=== PATIENT | male | born 1955 | race Caucasian/White ===

== ENCOUNTER 2017-01-23 17:12 | Inpatient (IN) | payer OTHER ==
--- NOTE | 2017-01-23 19:00 | NUR ---
PT ARRIVED TO FRONT ENTRANCE. ASSISTED OUT OF CAR INTO WC WITH MOD ASSIST. PT HAS LEFT SIDE WEAKNESS. PROPELLED IN WC TO ROOM 1114B, AND ADMITTED TO DR CLIFFORD [facility]. ORIENTED TO ROOM AND UNIT RULES. 3 FAMILY MEMBERS ARE AT BEDSIDE. PT IS ALERT AND ORIENTED X 3. SR'S ARE UP X 2 IN BED. CALL LIGHT AND BEDSIDE TABLE ARE WITHINEASY REACH.
--- NOTE | 2017-01-23 21:05 | NUR ---
ADMISSION ASSESSMENT COMPLETED. PT. IN BED WITH HOB UP FOR COMFORT AND FAMILY VISITING. NO VOICED NEEDS AND HIS CALL LIGHT IS WITHIN REACH.
[2017-01-23 21:32] VITALS: BP 185/74; BMI 29.4
[2017-01-23] MEDS ORDERED: GABAPENTIN100 MG PO (22:39)
[2017-01-23] MEDS ORDERED: LIPITOR40 MG PO (22:48)
[2017-01-23] MEDS ORDERED: PLAVIX75 MG PO (22:49)
[2017-01-23] MEDS ORDERED: PRINIVIL20 MG PO (22:49)
[2017-01-23] MEDS ORDERED: GLUCOPHAGE500 MG PO (22:50)
[2017-01-23] MEDS ORDERED: COREG25 MG PO (22:51)
--- NOTE | 2017-01-23 23:46 | NUR ---
PT IS RESTING IN BED VISITING WITH HIS SISTER WHO IS STAYING THE NIGHT WITH HIM. NO NEEDS VOICED.
--- NOTE | 2017-01-24 03:50 | NUR ---
RESTING QUIETLY IN BED WITH EYES CLOSED. RESPS ARE EVEN AND UNLABORED. NO ACUTE DISTRESS NOTED.
--- NOTE | 2017-01-24 06:10 | NUR ---
PT RESTING IN BED WITH EYES CLOSED. NO DISTRESS NOTED.
[2017-01-24 06:40] LABS: BASOPHILS 0.2 % (0-2); HEMATOCRIT 41.8 % (42.0-54.0); HEMOGLOBIN 14.5 g/dL (13.5-17.5); IMMATURE GRANULOCYTES 0.5 % (0-5); LYMPHOCYTES 36.3 % (15-50); MCH 31.5 pg (26.0-34.0); MCHC 34.7 g/dL (31.0-37.0); MCV 90.9 fL (80.0-100.0); MEAN PLATELET VOLUME 10.1 fL (7.4-10.4); MONOCYTES 9.8 % (2-11); NEUTROPHILS 51.2 % (40-80); PLATELET COUNT 220 10x3/uL (130-400); RDW 13.7 % (11.5-14.5); WBC 8.1 10x3/uL (4.8-10.8)
[2017-01-24 06:49] LABS: ANION GAP 13.5 mmol/L (8-16); CALCIUM 9.1 mg/dL (8.5-10.1); CARBON DIOXIDE 24.7 mmol/L (21.0-32.0); CREATININE - SERUM 1.8 mg/dL (0.6-1.3); POTASSIUM - SERUM 4.2 mmol/L (3.5-5.1)
--- NOTE | 2017-01-24 08:06 | NUR ---
SITTING UP IN BED.FAMILY/FRIEND AT BEDSIDE.CL IN REACH.DENIES NEEDS.
[2017-01-24 08:10] VITALS: BP 154/81
--- NOTE | 2017-01-24 08:50 | NUR ---
PT RESTING IN BED WITH EYES OPEN CALL LIGHT IN REACH WILL MONITER
[2017-01-24 10:07] VITALS: BMI 29.4
--- NOTE | 2017-01-24 17:00 | NUR ---
PT UP IN BED EATING SUPPER SISTER IN ROOM CALL LIGHT IN REACH TOLERATING WELL WILL ERIKER
--- NOTE | 2017-01-24 18:10 | NUR ---
PT RESTING IN BED WITH EYES OPEN CALL LIGHT IN REACH WILL MONITER
--- NOTE | 2017-01-24 19:40 | NUR ---
PT IS RESTING IN BED WITH EYES OPEN. ALERT AND ORIENTED X 4. PT STATES HE HAD A GREAT DAY OF THERAPY, BUT IS SORE ALL OVER TONIGHT. DENIES ANY NEEDS. SISTER IS AT BEDSIDE. LEFT SIDE WEAKNESS NOTED. SR'S ARE UP X 2 IN BED. CALL LIGHT AND BEDSIDE TABLE ARE WITHIN EASY REACH.
--- NOTE | 2017-01-24 20:04 | NUR ---
PT. IN BED WATCHING TV AND EATING. FEMALE VISITOR PRESENT ALSO. CALL LIGHT WITHIN REACH.
[2017-01-24 20:59] VITALS: BP 151/66
--- NOTE | 2017-01-24 21:26 | NUR ---
PT RESTING IN BED WATCHING TV. NO NEEDS VOICED.
--- NOTE | 2017-01-25 00:22 | NUR ---
RESTING IN BED WITH EYES CLOSED.
--- NOTE | 2017-01-25 04:18 | NUR ---
PT RESTING IN BED WITH EYES CLOSED. NO DISTRESS NOTED.
[2017-01-25 08:00] VITALS: BP 135/72
--- NOTE | 2017-01-25 09:00 | NUR ---
PATIENT ALERT/ORIENT X4. CALL LIGHT WITHIN REACH. VOICES NO NEEDS AT THIS TIME. SISTER STAYED WITH PATIENT LAST NIGHT. REMAINS IN ROOM.
--- NOTE | 2017-01-25 13:52 | NUR ---
PATIENT USING URINAL AT BEDSIDE. THIS NURSE EMPTIES. VOIDING LARGE AMOUNT. CLEAR YELLOW URINE OUTPUT
--- NOTE | 2017-01-25 16:00 | NUR ---
SITTING UP IN BED VISITING WITH FAMILY/FRIEND.DENIES NEEDS.
--- NOTE | 2017-01-25 19:50 | NUR ---
FRIEND STAY IN ROOM WITH PT.
--- NOTE | 2017-01-25 20:16 | NUR ---
PT. IN BED WITH HOB UP FOR COMFORT AND HAS SEVERAL VISITORS. NO VOICED NEEDS AND HIS CALL LIGHT IS WITHIN REACH.
[2017-01-25 22:27] VITALS: BP 149/58
--- NOTE | 2017-01-26 03:10 | NUR ---
REST QUIETLY IN BED,EYE CLOSE, CALL LIGHT IN REACH.
[2017-01-26 05:37] LABS: BASOPHILS 0.4 % (0-2); EOSINOPHILS 2.5 % (0-7); HEMATOCRIT 39.2 % (42.0-54.0); HEMOGLOBIN 13.4 g/dL (13.5-17.5); IMMATURE GRANULOCYTES 0.5 % (0-5); LYMPHOCYTES 41.9 % (15-50); MCH 31.3 pg (26.0-34.0); MCHC 34.2 g/dL (31.0-37.0); MCV 91.6 fL (80.0-100.0); MEAN PLATELET VOLUME 10.4 fL (7.4-10.4); MONOCYTES 9.3 % (2-11); NEUTROPHILS 45.4 % (40-80); PLATELET COUNT 236 10x3/uL (130-400); RBC 4.28 10x6/uL (4.20-6.10); RDW 13.7 % (11.5-14.5); WBC 7.5 10x3/uL (4.8-10.8)
[2017-01-26 05:41] LABS: HEMOGLOBIN A1C 7.1 % (4.8-6.0)
[2017-01-26 05:58] LABS: ANION GAP 13.3 mmol/L (8-16); CALCIUM 8.9 mg/dL (8.5-10.1); CARBON DIOXIDE 25.7 mmol/L (21.0-32.0); CHOL - HDL RATIO 4.3 ratio (2.3-4.9); CREATININE - SERUM 1.9 mg/dL (0.6-1.3)
[2017-01-26 08:00] VITALS: BP 134/73
--- NOTE | 2017-01-26 08:00 | NUR ---
PATIENT IS ALERT/ORIENT X4. SISTER STAYS IN ROOM WITH PATIENT. CALL LIGHT WITHIN REACH. PATIENT USING CALL LIGHT FOR NEEDS.
--- NOTE | 2017-01-26 15:04 | NUR ---
PATIENT WORKING WITH OCCUPATIONAL THERAPIST IN ROOM. GETTING A SHOWER. LINENS ON BED CHANGED WHILE PATIENT IN THE SHOWER.
--- NOTE | 2017-01-26 16:19 | NUR ---
PATIENT HAS SIGNED A RELEASE OF RESPONSIBILITY FOR BED/CHAIR ALARM. SISTER STAYES IN ROOM WITH PATIENT AND HELPES PATIENT INTO THE BATHROOM. PATIENT SORES A 3 ON FALL RISK
[2017-01-26 19:50] VITALS: BP 136/64
--- NOTE | 2017-01-26 19:50 | NUR ---
IN BED, AWAKE. SISTER AT BEDSIDE. ASSISTS PATIENT WITH MOST NEEDS. VSS. PATIENT DENIES CURRENT NEEDS.
--- NOTE | 2017-01-26 21:45 | NUR ---
ASSESSMENT AND HS MEDS COMPLETE. DENIES CURRENT NEEDS.
--- NOTE | 2017-01-26 22:15 | NUR ---
RESTING QUIETLY IN BED, EYES CLOSED.
--- NOTE | 2017-01-27 | NUR ---
RESTING IN BED ON LEFT SIDE, EYES CLOSED. APPEARS COMFORTABLE.
--- NOTE | 2017-01-27 01:20 | NUR ---
REMAINS IN BED, EYES CLOSED. APPEARS COMFORTABLE.
--- NOTE | 2017-01-27 03:20 | NUR ---
IN BED, AWAKE. CHANGING POSITIONS. DENIES NEEDS.
--- NOTE | 2017-01-27 05:40 | NUR ---
IN BED, RESTING QUIETLY, EYES CLOSED. SISTER WILL ASSIST PATIENT WITH ADL'S THIS MORNING.
[2017-01-27 07:56] VITALS: BP 148/75
--- NOTE | 2017-01-27 08:16 | NUR ---
EATING BREAKFAST. CALL LIGHT IN REACH
--- NOTE | 2017-01-27 12:01 | NUR ---
EATING LUNCH IN ROOM. LUE STILL SLIGHTLY SWOLLEN. HE STATES HE HAS SOME FEELING IN IT AND GROSS MOTOR MOVEMENTS NOTED TO HERBERT.
--- NOTE | 2017-01-27 18:17 | NUR ---
EATING SUPPER IN ROOM. CALL LIGHT IN REACH.
[2017-01-27 19:50] VITALS: BP 133/64
--- NOTE | 2017-01-27 19:50 | NUR ---
VS AND ASSESSMENT COMPLETE. DENIES NEEDS.
--- NOTE | 2017-01-27 21:20 | NUR ---
GAVE PATIENT SCHEDULED DOSE OF GABAPENTIN. HAS NO C/O AT THIS TIME.
--- NOTE | 2017-01-27 22:30 | NUR ---
RESTING QUIETLY IN BED ON LEFT SIDE. NO DISTRESS EVIDENT.
--- NOTE | 2017-01-28 00:10 | NUR ---
RESTING IN BED, ON RIGHT SIDE. NO APPARENT DISTRESS.
--- NOTE | 2017-01-28 04:40 | NUR ---
RESTING IN BED ON LEFT SIDE. RESPIRING QUIETLY.
--- NOTE | 2017-01-28 06:15 | NUR ---
RESTING IN BED, EYES CLOSED. APPEARS COMFORTABLE.
[2017-01-28 06:36] LABS: BASOPHILS 0.6 % (0-2); EOSINOPHILS 2.3 % (0-7); HEMATOCRIT 39.2 % (42.0-54.0); HEMOGLOBIN 13.5 g/dL (13.5-17.5); IMMATURE GRANULOCYTES 0.3 % (0-5); MCH 31.5 pg (26.0-34.0); MCHC 34.4 g/dL (31.0-37.0); MCV 91.6 fL (80.0-100.0); MEAN PLATELET VOLUME 10.1 fL (7.4-10.4); MONOCYTES 12.1 % (2-11); NEUTROPHILS 46.7 % (40-80); PLATELET COUNT 232 10x3/uL (130-400); RBC 4.28 10x6/uL (4.20-6.10); RDW 13.5 % (11.5-14.5)
[2017-01-28 07:00] LABS: ANION GAP 12.8 mmol/L (8-16); CALCIUM 9.2 mg/dL (8.5-10.1); CARBON DIOXIDE 28.4 mmol/L (21.0-32.0); CREATININE - SERUM 2.1 mg/dL (0.6-1.3); POTASSIUM - SERUM 4.2 mmol/L (3.5-5.1)
--- NOTE | 2017-01-28 08:00 | NUR ---
DENIES NEEDS.FAMILY/FRIEND AT BEDSIDE.CL IN REACH.
--- NOTE | 2017-01-28 08:00 | NUR ---
PATIENT IS ALERT/ORIENT X4. SISTER STAYES WITH PATIENT IN ROOM 24/11. PATIENT HAS SINGED A BED/CHAIR ALARM WAVIOR. CALL LIGHT WITHIN REACH. VOICES NO NEEDS AT THIS TIME.
[2017-01-28 08:11] VITALS: BP 138/71
--- NOTE | 2017-01-28 10:30 | NUR ---
PATIENT WORKING WITH OCCUPATIONAL THERAPIST IN ROOM. OCCUPATIONAL THERAPIST HELPING DYLON WITH OT SHOWER.
--- NOTE | 2017-01-28 13:21 | NUR ---
PATIENT IN REHAB ROOM. WORKING WITH PHYSICAL THERAPIST. DENIES ANY PAIN/DISC AT THIS TIME
--- NOTE | 2017-01-28 13:31 | NUR ---
RD f/u Chart reviewed, consuming 75-100% of regular diet. wt stable. nae 20 with incesions on medial L elbow and abrasion L ankle. Pt without complaints. no changes at this time time. pt with excelleing po intake. No changes PLAN: Continue current diet, continue to provide selective menu, RD to follow, continue plan of care
--- NOTE | 2017-01-28 14:23 | NUR ---
CARE TEAM MEETING: TENATIVE DISCHARGE DATE IS 02/06/17. WILL CONTINUE TO FOLLOW WITH PATIENT AND ASSIT WITH DISCHARGE NEEDS.
--- NOTE | 2017-01-28 18:32 | NUR ---
PATIENT REMAINS INDEPENDANT IN ROOM.
--- NOTE | 2017-01-28 19:00 | NUR ---
PATIENT IN BED, AWAKE. DENIES NEEDS. SISTER STAYING IN ROOM WITH PATIENT AND ASSISTS WITH MOST OF HIS NEEDS.
[2017-01-28 21:05] VITALS: BP 144/56
--- NOTE | 2017-01-28 21:05 | NUR ---
ASSESSMENT AND HS MEDS COMPLETE. DENIES NEEDS.
--- NOTE | 2017-01-28 22:10 | NUR ---
IN BED, AWAKE. WATCHING TV. DENIES DISCOMFORT OR OTHER NEEDS.
--- NOTE | 2017-01-29 00:35 | NUR ---
RESTING IN BED, ON RIGHT SIDE, HOB UP 20 DEGREES. APPEARS COMFORTABLE.
--- NOTE | 2017-01-29 02:40 | NUR ---
IN BED, EYES CLOSED. RESTING QUIETLY ON RIGHT SIDE.
--- NOTE | 2017-01-29 06:00 | NUR ---
RESTING IN BED, EYES CLOSED. RESPIRING QUIETLY.
--- NOTE | 2017-01-29 07:35 | NUR ---
SITTING UP IN BED RESTING COMFORTABLY. OFFERS NO COMPLAINTS. CALL LIGHT WITHIN REACH. WILL CONTINUE TO MONITOR
--- NOTE | 2017-01-29 07:53 | NUR ---
SITTING UP IN BED EATING BREAKFAST.CL IN REACH.FAMILY/FRIEND ASSISTING.
[2017-01-29 10:06] VITALS: BP 126/72
--- NOTE | 2017-01-29 11:09 | NUR ---
SITTING UP IN WHEELCHAIR VISITING WITH FAMILY. OFFERS NO COMPLAINTS. NO S/SX OF DISTRESS. CALL LIGHT WITHIN REACH. WILL CONTINUE TO MONITOR
--- NOTE | 2017-01-29 15:32 | NUR ---
SITTING UP IN WHEELCHAIR WATCHING TV. SISTER AT BEDSIDE. OFFERS NO COMPLAINTS. CALL LIGHT WITHIN REACH. WILL CONTINUE TO MONITOR.
--- NOTE | 2017-01-29 17:00 | NUR ---
CLINICALS FAXED TO [place] AT [facility]. AUTH # [id number] WITH CONFORMATION RECEIVED
--- NOTE | 2017-01-29 19:15 | NUR ---
IN BED, HOB UP 45 DEGREES. DENIES NEEDS. SISTER STAYING IN ROOM WITH PATIENT. ASSISTS WITH MOST OF HIS CARE.
[2017-01-29 21:30] VITALS: BP 166/70
--- NOTE | 2017-01-29 21:30 | NUR ---
ASSESSMENT AND HS MEDS COMPLETE. DENIES NEEDS.
--- NOTE | 2017-01-29 22:10 | NUR ---
RESTING QUIETLY IN BED, EYES CLOSED.
--- NOTE | 2017-01-30 00:10 | NUR ---
RESTING IN BED ON LEFT SIDE, HOB UP 20 DEGREES. NO DISTRESS EVIDENT.
--- NOTE | 2017-01-30 02:30 | NUR ---
RESTING IN BED ON RIGHT SIDE. APPEARS COMFORTABLE.
--- NOTE | 2017-01-30 04:45 | NUR ---
CONTINUES IN BED, LYING ON RIGHT SIDE. RESPIRING QUIETLY.
--- NOTE | 2017-01-30 06:05 | NUR ---
REMAINS IN BED, RESTING QUIETLY.
[2017-01-30 06:49] LABS: BASOPHILS 0.6 % (0-2); EOSINOPHILS 3.1 % (0-7); HEMATOCRIT 38.7 % (42.0-54.0); HEMOGLOBIN 13.3 g/dL (13.5-17.5); IMMATURE GRANULOCYTES 0.5 % (0-5); LYMPHOCYTES 33.1 % (15-50); MCH 31.4 pg (26.0-34.0); MCHC 34.4 g/dL (31.0-37.0); MCV 91.5 fL (80.0-100.0); MEAN PLATELET VOLUME 10.1 fL (7.4-10.4); MONOCYTES 13.6 % (2-11); NEUTROPHILS 49.1 % (40-80); PLATELET COUNT 238 10x3/uL (130-400); RBC 4.23 10x6/uL (4.20-6.10); RDW 13.4 % (11.5-14.5); WBC 7.9 10x3/uL (4.8-10.8)
[2017-01-30 07:04] LABS: ANION GAP 10.5 mmol/L (8-16); CARBON DIOXIDE 29.9 mmol/L (21.0-32.0); CREATININE - SERUM 1.8 mg/dL (0.6-1.3); POTASSIUM - SERUM 4.4 mmol/L (3.5-5.1)
--- NOTE | 2017-01-30 08:18 | NUR ---
EATING BREAKFAST IN ROOM. CALL LIGHT IN REACH
--- NOTE | 2017-01-30 08:30 | NUR ---
PT RESTING IN BED WITH EYES OPEN CALL LIGHT IN REACH WILL MONITER
[2017-01-30 08:46] VITALS: BP 156/76
--- NOTE | 2017-01-30 12:00 | NUR ---
PT RESTING IN BED WITH EYES OPEN CALL LIGHT IN REACH WILL MONITER
[2017-01-30 20:39] VITALS: BP 139/47
--- NOTE | 2017-01-30 20:39 | NUR ---
RECIEVED UP IN BED WITH TV ON AND VISITOR AT BEDSIDE. PLEASANT AND COOPERATIVE. DENIES ANY PAIN. CALL LIGHT IN REACH.
--- NOTE | 2017-01-30 22:39 | NUR ---
LAYING IN BED WITH LIGHTS OFF AND TV ON. PLEASANT AND COOPERATIVE. DENIES ANY PAIN AT THIS TIME. VISITOR AT [facility]. CALL LIGHT AND OVERBED TABLE IN REACH.
--- NOTE | 2017-01-31 02:10 | NUR ---
RESTING IN BED WITH EYES CLOSED.NO S/S OF DISTRESS OBSERVED. CALL LIGHT AND OVERBED TABLE IN REQACH.
--- NOTE | 2017-01-31 07:18 | NUR ---
RESTING QUIETLY IN BED. CALL LIGHT IN REACH. BED IN LOW POSITION. BED ALARM IN PLACE AND IN USE.
--- NOTE | 2017-01-31 07:55 | NUR ---
LYING IN BED ON RIGHT SIDE EYES CLOSED RESTING QUIELTY. APPROPRIATE RISE AND FALL OF CHEST. SISTER AT BEDSIDE. WILL CONTINUE TO MONITOR.
[2017-01-31 08:00] VITALS: BP 122/55
--- NOTE | 2017-01-31 17:57 | NUR ---
SITTING UP IN BED WATCHING TV. SISTER AT BEDSIDE. DENIES ANY NEEDS. CALL LIGHT WITHIN REACH, BED LOW. WILL CONTINUE TO MONITOR
[2017-01-31 19:55] VITALS: BP 157/71
--- NOTE | 2017-01-31 19:55 | NUR ---
RECIEVED UP IN BED WITH EYES OPEN AND TV ON. SISTER AT BEDSIDE. CONTINUES TO HAVE LEFT SIDED WEAKNESS. STATES "THERAPY GAVE ME A WORK OUT TODAY. CAN I GET SOME IBUPROPHEN WHEN I GET MY MEDICATION". THIS NURSE AGREED. ALERT AND ORIENTED. CALL LIGHT IN REACH.
--- NOTE | 2017-01-31 21:30 | NUR ---
RESTING IN BED WITH EYES OPEN AND TV ON. PLEASANT AND COOPERATIVE. C/O GENERAL PAIN AT 4. DESCRIBES ACHING. MOTRIN GIVEN PER ORDERS. CALL LIGHT IN REAC.
--- NOTE | 2017-02-01 02:21 | NUR ---
RESTING IN BED WITH EYES CLOSED. NO S/S OF DISTRESS OBSERVED. SISTER AT BEDSIDE ASLEEP. CALL LIGHT AND OVERBED TABLE IN REACH.
--- NOTE | 2017-02-01 06:36 | NUR ---
RESTING IN BED WITH EYES CLOSED. NO S/S OF DISTRESS OBSERVED. [facility] AND OVERBED TABLE IN REACH.
[2017-02-01 08:00] VITALS: BP 97/73
--- NOTE | 2017-02-01 09:55 | NUR ---
LYING IN BED ON RIGHT SIDE EYES CLOSED RESTING QUIETLY. APPROPRIATE RISE AND FALL OF CHEST. NO S/SX OF DISTRESS. CALL LIGHT WITHIN REACH, BED LOWEST POSITION. SISTER IN ROOM. WILL CONTINUE TO MONITOR.
--- NOTE | 2017-02-01 13:09 | NUR ---
SITTING UP IN CHAIR. SISTER AT BEDSIDE. DENIES ANY NEEDS. CALL LIGHT WITHIN REACH. WILL CONTINUE TO MONITOR
--- NOTE | 2017-02-01 19:40 | NUR ---
RESTING IN BED WITH TV ON AND SISTER AT BEDSIDE. ALERT AND ORIENTED X4. RATES PAIN AT 4. REQUEST IBUPROPHEN BE GIVEN WITH NIGHT TIME MEDS. STATES ACHES ALL OVER D/T THERAPY. CALL LIGHT AND OVERBED TABLE IN REACH.
[2017-02-01 20:53] VITALS: BP 170/60
--- NOTE | 2017-02-01 21:03 | NUR ---
RESTING IN BED WITH EYES OPEN. NO S/S OF DISTRESS OBSERVED. WATCHING TV AT THIS TIME. DENIES ANY NEEDS. CALL LIGHT AND OVERBED TABLE IN REACH.
--- NOTE | 2017-02-02 00:07 | NUR ---
RESTING IN BED WITH EYES CLOSED. NO S/S OF DISTRESS OBSERVED. CALL LIGHT AND OVERBED TABLE IN REACH.
--- NOTE | 2017-02-02 02:02 | NUR ---
RSTING IN BED QWITH EYES CLOSED. NO S/S OF DISTRESS OBSERVED. CALL LIGHT AND OVERBED TABLE IN REACH.
[2017-02-02 05:36] LABS: BASOPHILS 0.9 % (0-2); EOSINOPHILS 4.2 % (0-7); HEMATOCRIT 38.9 % (42.0-54.0); HEMOGLOBIN 13.2 g/dL (13.5-17.5); IMMATURE GRANULOCYTES 0.5 % (0-5); LYMPHOCYTES 40.1 % (15-50); MCH 31.3 pg (26.0-34.0); MCHC 33.9 g/dL (31.0-37.0); MCV 92.2 fL (80.0-100.0); MEAN PLATELET VOLUME 9.9 fL (7.4-10.4); MONOCYTES 8.6 % (2-11); NEUTROPHILS 45.7 % (40-80); PLATELET COUNT 248 10x3/uL (130-400); RBC 4.22 10x6/uL (4.20-6.10); RDW 13.2 % (11.5-14.5); WBC 6.6 10x3/uL (4.8-10.8)
[2017-02-02 05:44] LABS: ANION GAP 12.9 mmol/L (8-16); CALCIUM 8.7 mg/dL (8.5-10.1); CARBON DIOXIDE 27.4 mmol/L (21.0-32.0); CREATININE - SERUM 1.9 mg/dL (0.6-1.3); POTASSIUM - SERUM 4.3 mmol/L (3.5-5.1)
[2017-02-02 08:23] VITALS: BP 138/47
--- NOTE | 2017-02-02 09:10 | NUR ---
PT REQ AND REC'D PRN PAIN MEDICATION WITH AM MEDS DUE TO LEFT SHOULDER AND HIP PAIN. PT DENIES FURTHER NEEDS. WCTM.
--- NOTE | 2017-02-02 10:13 | NUR ---
PT UP IN WHEELCHAIR NO PROBLEMS WILL MONITER
--- NOTE | 2017-02-02 16:34 | NUR ---
SPOKE WITH PATIENT REGARDING DISCHARGE PLANS AND HE WOULD LIKE REFERAL MADE TO [facility] FOR POSSIBLE ADMISSION
--- NOTE | 2017-02-02 17:52 | NUR ---
PT RESTING IN BED WITH EYES OPEN CALL LIGHT IN REACH NO PROBLEMS WILL MONITER
--- NOTE | 2017-02-02 18:56 | NUR ---
RESTING IN BED WITH EYES OPEN AND TV ON. SISTER AT BEDSIDE. DENIES ANY PAIN AT THIS TIME. PLEASANT AND COOPERATIVE. CALL LIGHT AND OVERBED TABLE IN REACH.
[2017-02-02 20:18] VITALS: BP 154/72
--- NOTE | 2017-02-02 21:30 | NUR ---
RESTING IN BED WITH EYES CLOSED. C/O GENERALIZED PAIN AT 5 AND ACHING. IBUPROPHEN GIVEN PER PT REQUEST. DENIES ANY OTHER NEEDS.
[2017-02-02 22:32] VITALS: BP 154/72
--- NOTE | 2017-02-03 00:17 | NUR ---
RESTING IN BED WITH EYES CLOSED. SISTER AT BEDSIDE. CALL LIGHT AND OVERBED IN REACH.
--- NOTE | 2017-02-03 04:06 | NUR ---
RESTING IN BED WITH EYES CLOSED. NO S/S OF DISTRESS OBSERVED. CALL LIGHT AND OVERBED TABLE IN REACH.
--- NOTE | 2017-02-03 08:06 | NUR ---
LYING IN BED ON RIGHT SIDE EYES CLOSED RESTING QUIELTY. SISTER ASLEEP IN BED BESIDE PATIENT. APPROPRIATE RISE AND FALL OF CHEST. CALL LIGHT WITHIN REACH, BED LOW AND BED ALARM WAIVER SIGNED. WILL CONTINUE TO MONITOR
[2017-02-03 09:51] VITALS: BP 145/64
--- NOTE | 2017-02-03 12:00 | NUR ---
EATING LUNCH.DENIES NEEDS.
--- NOTE | 2017-02-03 13:33 | NUR ---
Nutrition Follow Up: Pt is eating 100% meal avg on a regular diet. +BM 02/02/17. Labs reviewed - Glucose slightly elevated. Meds noted. Rec continue current diet. If glucose continues elevated will change diet to diabetic. RD following.
--- NOTE | 2017-02-03 13:50 | NUR ---
SITTING UP IN WHEELCHAIR VISITING WITH SISTER. DENIES ANY NEEDS. CALL LIGHT WITHIN REACH. BED ALARM WAIVER SIGNED. WILL CONTINUE TO MONITOR
--- NOTE | 2017-02-03 16:59 | NUR ---
SITTING UP IN WHEELCHAIR PLAYING GAME WITH SISTER. DENIES ANY NEEDS. CALL LIGHT WITHIN REACH. WILL CONTINUE TO MONITOR
--- NOTE | 2017-02-03 19:30 | NUR ---
RESTING IN BED ON RIGHT SIDE. APPEARS COMFORTABLE. SISTER, HOW ASSISTS WITH MOST OF HIS CARE IS STAYING IN BED 1114A.
--- NOTE | 2017-02-03 21:30 | NUR ---
IN BED, AWAKE. DENIES NEEDS.
[2017-02-03 22:04] VITALS: BP 144/79
--- NOTE | 2017-02-03 22:55 | NUR ---
ASSESSMENT AND HS MEDS COMPLETE. DENIES NEEDS.
--- NOTE | 2017-02-04 00:45 | NUR ---
RESTING QUIETLY IN BED.
--- NOTE | 2017-02-04 02:15 | NUR ---
REMAINS IN BED ON RIGHT SIDE, EYES CLOSED.
--- NOTE | 2017-02-04 02:15 | NUR ---
RESTING IN BED, EYES CLOSED.
--- NOTE | 2017-02-04 02:15 | NUR ---
IN BED, EYES CLOSED.
--- NOTE | 2017-02-04 04:20 | NUR ---
RESTING IN BED, ON RIGHT SIDE. RESPIRING QUIETLY. EMPTIED 275ML FROM BEDSIDE URINAL. SISTER SAYS HE URINATED A LIKE AMOUNT AROUND 8:00PM.
--- NOTE | 2017-02-04 05:55 | NUR ---
CONTINUES IN BED, EYES CLOSED. APPEARS COMFORTABLE.
[2017-02-04 08:00] VITALS: BP 160/74
--- NOTE | 2017-02-04 08:00 | NUR ---
PT RESTING IN BED WITH EYES OPEN EATING BREAKFAST SISTER AT BEDSIDE CALL LIGHT IN REACH NO PROBLEMS WILL MONITER
--- NOTE | 2017-02-04 08:49 | NUR ---
RESTING QUIETLY IN BED. DENIES NEEDS OR C/O. CALL LIGHT IN REACH. BED IN LOWEST POSITION.
--- NOTE | 2017-02-04 14:41 | NUR ---
PT RESTING IN BED WITH EYES OPEN CALL LIGHT IN REACH WILL MONITER
--- NOTE | 2017-02-04 16:46 | NUR ---
RECIEVED CALL FROM [facility] AND PATIENT HAS BEEN MEDICALLY ACCEPTED WAITNG ON OK FROM INSURANCE. WILL CONTINUE TO FOLLOW WITH PATIENT
--- NOTE | 2017-02-04 17:39 | NUR ---
PT RESTING IN BED WITH EYES OPEN CALL LIGHT IN REACH NO PROBLEMS WILL MONITER
--- NOTE | 2017-02-04 19:20 | NUR ---
IN BED, HOB UP 45 DEGREES, AWAKE. DENIES NEEDS. STATED HE HAD A BM TODAY WHICH HE HAD NOT PREVIOUSLY REPORTED TO NURSING.
[2017-02-04 21:10] VITALS: BP 170/68
--- NOTE | 2017-02-04 21:10 | NUR ---
PATIENT REMAINS AWAKE, IN BED. ASSESSMENT AND HS MEDS COMPLETE. DENIES NEEDS.
--- NOTE | 2017-02-04 22:20 | NUR ---
CONTINUES IN BED, EYES CLOSED.
--- NOTE | 2017-02-05 00:10 | NUR ---
PATIENT REMAINS AWAKE, WATCHING TV. DENIES NEEDS.
--- NOTE | 2017-02-05 02:40 | NUR ---
IN BED, EYES CLOSED. EMPTIED 350 ML FROM BEDSIDE URINAL.
--- NOTE | 2017-02-05 04:45 | NUR ---
IN BED, EYES CLOSED, LYING ON RIGHT SIDE. RESPIRATIONS ARE QUIET AND UNLABORED.
--- NOTE | 2017-02-05 06:35 | NUR ---
RESTING IN BED, EYES CLOSED.
--- NOTE | 2017-02-05 07:35 | NUR ---
SITTING UP IN BED VISITING WITH SISTER. NO S/SX OF DISTRESS. ALERT AND ORIENTED X4. CALL LIGHT WITHIN REACH, BED IN LOWEST POSITION. WILL CONTINUE TO MONITOR
[2017-02-05 07:53] VITALS: BP 151/78
--- NOTE | 2017-02-05 11:33 | NUR ---
IN THERAPY GYM WITH PHYSICAL THERAPY. NO S/SX OF DISTRESS. DENIES ANY NEEDS. WILL CONTINUE TO MONITOR
--- NOTE | 2017-02-05 14:43 | NUR ---
IN THERAPY GYM WITH PHYSICAL THERAPY. NO S/SX OF DISTRESS. WILL CONTINUE TO MONITOR
--- NOTE | 2017-02-05 17:12 | NUR ---
SITTING UP IN BED WATCHING TV. SISTER AT BEDSIDE. PT C/O BEING DIZZY AND NAUSEATED AND STATES IT STARTED YESTERDAY AFTERNOON. PT AND PT'S SISTER FEEL IT MAY BE RELATED TO THE NICOTINE PATCH THAT WAS STARTED YESTERDAY AT 0900 AND ASKED IF IT COULD BE REMOVED. I REMOVED NICOTINE PATCH AND DISCARDED PROPERLY. WELL DISCONTINUED MED OFF EMAR PER PT AND FAMILY REQUEST. PT FEELS THAT HE DOES NOT NEED NICOTINE PATCH.
--- NOTE | 2017-02-05 18:38 | NUR ---
RESTING QUIETLY IN BED. CALL LIGHT IN REACH. BED IN LOWEST POSITION.
--- NOTE | 2017-02-05 19:30 | NUR ---
IN BED, AWAKE. DENIES NEEDS.
[2017-02-05 21:25] VITALS: BP 162/74
--- NOTE | 2017-02-05 21:25 | NUR ---
ASSESSMENT AND HS MEDS COMPLETE. DENIES CURRENT NEEDS.
--- NOTE | 2017-02-05 22:00 | NUR ---
REMAINS AWAKE, WATCHING TV.
--- NOTE | 2017-02-06 00:15 | NUR ---
RESTING IN BED ON LEFT SIDE. NO DISTRESS EVIDENT.
--- NOTE | 2017-02-06 02:05 | NUR ---
CONTINUES IN BED, EYES CLOSED. APPEARS COMFORTABLE.
--- NOTE | 2017-02-06 04:20 | NUR ---
REMAINS IN BED, EYES CLOSED. RESPIRATIONS ARE QUIET AND UNLABORED.
--- NOTE | 2017-02-06 06:00 | NUR ---
REMAINS IN BED, RESTING QUIETLY.
[2017-02-06 07:52] VITALS: BP 165/80
--- NOTE | 2017-02-06 08:00 | NUR ---
PATIENT ALERT/ORIENT X4. SISTER STAY WITH PATIENT. PATIENT USING CALL LIGHT FOR NEEDS. VOICES NO NEEDS AT THIS TIME.
--- NOTE | 2017-02-06 08:32 | RHP ---
PATIENT: CINDY CAPUTO MEDICAL RECORD: [id number] ACCOUNT: [id number] LOCATION:[facility]1114 : 59 ADMISSION DATE: 01/23/17 REHABILITATION HISTORY AND PHYSICAL EXAMINATION POST ADMISSION PHYSICIAN EXAMINATION Post-admission Physical Examination and History and Physical DATE OF ADMISSION: 01/23/2017 ADMITTING DIAGNOSIS: Acute cerebrovascular accident involving the right thalamic area with subacute ischemia. HISTORY OF PRESENT ILLNESS: The patient is admitted to the inpatient rehab for stroke involving the right thalamic area secondary to acute/subacute ischemia. He has left-sided weakness. He is a 61-year-old gentleman from the local area. He is a long distance truck assembler, was resting in his truck in [place], woke up and noted left-sided weakness and was able to get assistance from 911, taken to a local hospital and found to have a right thalamic acute/subacute ischemia per MRI. He was noted to have left-sided weakness. He lives in [facility] with his fiance. He was completely independent with ADLs and mobility prior to this. He is currently sitting up for moderate assist for ADLs and moderate assist to total assist for mobility, only noted to ambulate 6 feet with the use a rolling walker at this time. He and his family planned on him returning back to home. He will require acute intensive therapy 5 times a week, 24-hour nursing care and medical management at least 3 times a week to get him back to his prior level of functioning. COMORBIDITIES: Include hypertension, congestive heart failure, diabetes, electrolyte abnormalities, tobacco use, and history of seizures. PAST MEDICAL HISTORY: Significant for neuropathy, tobacco use. PAST SURGICAL HISTORY: Includes orthopedic surgery to his right elbow and left thumb. ALLERGIES: No known drug allergies. CURRENT MEDICATIONS: Include Coreg 25 mg b.i.d., Glucophage 500 mg daily, Plavix 75 mg daily, lisinopril 20 mg daily, Lipitor 40 mg daily, polyethylene glycol 17 grams in 8 ounces of water daily, and Neurontin 100 mg b.i.d. HABITS: Does have a history of tobacco use. FAMILY HISTORY: Noncontributory. SOCIAL HISTORY: The patient hopes to return back home with family. REVIEW OF SYSTEMS: GENERAL: She only does complain of weakness, mainly on one side. HEENT: Denies cold, cough, or congestion. CARDIOVASCULAR: Denies chest pain. PHYSICAL EXAMINATION: VITAL SIGNS: Stable, afebrile. HISTORY AND PHYSICAL [id number] PATITOCINDY SALVADOR GENERAL: A well-developed gentleman, in no acute distress, alert upon exam. HEENT: Normocephalic and atraumatic. Mucosa moist. NECK: Supple. No lymphadenopathy. LUNGS: Clear at this time. HEART: Regular rate and rhythm. ABDOMEN: Benign. EXTREMITIES: No clubbing, cyanosis or edema. NEUROLOGIC: Does have weakness on his left side. LABORATORY DATA: White count 8.1, H&H of 14 and 41, and platelet count was noted to be 220. Chemistry showed a sodium 138, potassium 4.2, BUN and creatinine of 25 and 1.8 and blood sugar is noted to be 121. ASSESSMENT: This 61-year-old gentleman admitted to the rehab with a working diagnosis of cerebrovascular accident with left body involvement. The patient has potential to make improvement. We instituted the following multidisciplinary therapies including to, but not limited to physical, occupational, respiratory, speech, nutritional services, prosthetics and orthotics. Given his complex condition and risk for more complications, rehabilitation services cannot be provided at a lower level of care such as a fci facility. PLAN: 1. Admit to [facility] rehab for intensive inpatient therapy to include the following disciplines: A. Physical therapy to improve gait, all transfer skills and bed mobility to a modified independent level. B. Occupational therapy to improve activities of daily living to a modified independent level. C. Case management to assist with discharge planning and placement options. D. Nutrition to assist with nutritional needs. E. Rehabilitation nursing to assist in monitoring the patient's underlying medical conditions and to assist with any type of bowel or bladder management. 2. The patient's current medications and medical care will be continued. 3. The patient will be placed on standard fall precautions. 4. The patient's stay is approximately 7-10 days. 5. Discuss this patient during care team staff meeting this week. 6. I am going to go ahead and check a lipid panel and A1c on him on Thursday and we will follow up the results of this. TRANSINT:[id number] Voice Confirmation ID: [id number] DOCUMENT ID: [id number] KEVIN notes whether there has been none or any medical/functional change since admission: - No change since prescreen. KEVIN attests patient continues to be appropriate for IRF: - Continues to be appropriate. HISTORY AND PHYSICAL [id number] CINDY CAPUTO SCOTT MD at 0832 CC: [id number] DICTATION DATE: 01/25/17 1220 DISABILITY MANAGER: 01/25/17 1329 ADM IN [place] [id number] [place] [id number]
--- NOTE | 2017-02-06 08:45 | NUR ---
DR. Treasure LOGAN INTO SEE PATIENT. NEW ORDERS RECIEVED FOR PATIENT TO BE DISCHARGED TO HOME.
--- NOTE | 2017-02-06 11:21 | NUR ---
PATIENT INSURANCE HAS DENIED PATIENT TO GO TO [facility]. PATIENT WILL DISCHARGE HOME WITH SISTER IN THE [facility]. [facility] WILL DELIVER A ROLLING WALKER. SISTER MAKING FOLLOW UP APPOINTMENTS WITH PHYSICIANS IN THE NEUROMEDICAL CENTER.
--- NOTE | 2017-02-06 13:00 | NUR ---
DISCHARGE INSTRUCTIONS GONE OVER WITH PATIENT AND PATIENTS SISTER. DISCHARGE MEDICATIONS CALLED INTO [facility] [address].
--- NOTE | 2017-02-06 14:06 | NUR ---
PATIENT DISCHARGED TO HOME WITH SISTER.
--- NOTE | 2017-03-31 10:49 | DS ---
PATIENT:CINDY CAPUTO :59 MEDICAL RECORD: [id number] DISCHARGE SUMMARY ADMISSION DATE: 01/23/17 DISCHARGE DATE: 02/06/17 This is a discharge dated 02/06/2017 from inpatient rehab. PRIMARY DIAGNOSIS: Decreased functional ability and ability to provide activities of daily living secondary to acute stroke. SECONDARY DIAGNOSES: 1. Left-sided weakness. 2. Congestive heart failure. 3. Tobacco abuse. 4. Hyperlipidemia. 5. Hypertension. 6. Diabetes. 7. History of seizures. 8. Neuropathy. CONSULTS THIS HOSPITALIZATION: Cardiology with Dr. Ventura. HOSPITAL COURSE: Full H&P is located elsewhere on the chart on this 61-year-old male who was admitted to inpatient rehab for physical therapy and occupational therapy to improve gait, transfer skills, bed mobility, and activities of daily living to a modified independent level. He was evaluated by PT and OT and their plans of care were followed. He required senior care care for observation and assessment, medication administration. Fingerstick blood sugars were monitored throughout his hospital stay with appropriate adjustment in medications as needed. Electrolytes were managed by protocol. He continued on appropriate home medications. Cardiology was consulted for cardiomyopathy. He was seen by Dr. Ventura with recommendations for outpatient nuclear stress testing as well as smoking cessation. He was cooperative with therapies, progressing towards goals. Case management was involved for discharge planning. He was considered stable for discharge on 02/06/2017. DISCHARGE MEDICATIONS: As per discharge medication reconciliation. DISCHARGE DISPOSITION: He is discharged to [facility]. He will continue his current diet and level of activity. He will follow up with the rehab physician and then specialists as directed. He will have continued PT and OT in the outpatient rehabilitation setting. He will follow up with cardiology for outpatient evaluation. At least 30 minutes was spent in this discharge activity. TRANSINT:[id number] Voice Confirmation ID: [id number] DOCUMENT ID: [id number] Dictated By: JEWEL LINDSEY I have interviewed/examined the above patient and agree with these documented findings. DISCHARGE SUMMARY REPORT [id number] CINDY CAPUTO SCOTT MD at 1400 at 1049 CC: [id number] DICTATION DATE: 03/29/17 190 [employer]: 03/30/17 1122 DIS IN 02/06/17 [facility] [address] [facility] [id number]
== END 2017-02-06 14:07 | disposition home or self-care (01) | DRG 56 ==
LOC: D.REHAB 17:12
PROVIDERS: ADMIT Emergency Medicine
DX: I69.354 Hemiplegia and hemiparesis following cerebral infarction affecting left non-dominant side (principal); I50.21 Acute systolic (congestive) heart failure; F17.203 Nicotine dependence unspecified, with withdrawal; I42.9 Cardiomyopathy, unspecified; I11.0 Hypertensive heart disease with heart failure; F17.200 Nicotine dependence, unspecified, uncomplicated; E87.8 Other disorders of electrolyte and fluid balance, not elsewhere classified; E11.40 Type 2 diabetes mellitus with diabetic neuropathy, unspecified; I34.0 Nonrheumatic mitral (valve) insufficiency